=== PATIENT | female | born 1960 | race Caucasian/White ===

== ENCOUNTER → 2017-02-08 | Outpatient (CLI) | payer OTHER | LOC: FIMAGING 11:55 | PROVIDERS: ATTEND Internal Medicine | DX: Z12.31 Encounter for screening mammogram for malignant neoplasm of breast (principal) | CPT/HCPCS: G0202 ==

== ENCOUNTER → 2018-02-11 | Outpatient (CLI) | payer OTHER | LOC: FIMAGING 10:10 | PROVIDERS: ATTEND Internal Medicine | DX: Z12.31 Encounter for screening mammogram for malignant neoplasm of breast (principal) ==

== ENCOUNTER → 2018-02-21 | Outpatient (CLI) | payer OTHER | LOC: FIMAGING 11:20 | PROVIDERS: ATTEND Internal Medicine | DX: Z13.820 Encounter for screening for osteoporosis (principal); M85.89 Other specified disorders of bone density and structure, multiple sites; Z78.0 Asymptomatic menopausal state ==

== ENCOUNTER → 2018-12-01 | Outpatient (CLI) | payer OTHER | LOC: BMCIMAGING 15:42 | PROVIDERS: ATTEND Internal Medicine | DX: S92.531A Displaced fracture of distal phalanx of right lesser toe(s), initial encounter for closed fracture (principal) ==